=== PATIENT | male | born 1980 | race Hispanic/Latino ===

== ENCOUNTER → 2024-03-19 09:35 | Outpatient (REF) | payer OTHER, SELFPAY ==
[2024-03-19 10:48] LABS: Hematocrit 44.2 % (39.0-52.0); Hemoglobin 15.5 g/dL (13.0-18.0); Mean Corp Hgb Conc. 35.1 g/dL (33.0-37.0); Mean Corpuscular Hgb 31.8 pg (27.0-31.0); Mean Corpuscular Volume 90.6 fL (80.0-94.0); Mean Platelet Volume 10.3 fL (7.4-10.4); Platelet Count 261 10^3/uL (130-400); Red Blood Cell Count 4.88 10^6/uL (4.70-6.10); Red Cell Dist. Width 12.8 % (11.5-14.5); White Blood Cell Count 6.6 10^3/uL (4.8-10.8)
[2024-03-19 11:22] LABS: ALT (SGPT) 84 U/L (0-50); AST (SGOT) 68 U/L (17-59); Albumin 4.9 g/dl (3.5-5.0); Alkaline Phosphatase 104 U/L (38-126); Blood Urea Nitrogen 15 mg/dl (9-20); Calcium 10.1 mg/dl (8.4-10.2); Carbon Dioxide 26 mmol/L (22-30); Chloride 101 mmol/L (98-107); Glucose 109 mg/dl (70-99); Potassium 5.1 mmol/L (3.5-5.1); Sodium 142 mmol/L (135-145); Total Bilirubin 0.7 mg/dl (0.2-1.3); Total Protein 8.5 g/dl (6.3-8.2); eGFR > 60.00
[2024-03-19 11:44] LABS: Glycohemoglobin (HgbA1c) 5.9 % (4.0-5.6)
[2024-03-19 11:48] LABS: TSH Reflex To Free T4 2.23 uIU/ml (0.47-4.68)
== END ==
LOC: CLINIC 09:35
PROVIDERS: ATTENDING PHYSICIAN Nurse Practitioner Adult Health
DX: Z00.00 Encounter for general adult medical examination without abnormal findings (principal)
CPT/HCPCS: 36415; 80053; 83036; 84443; 85027